=== PATIENT | male | born 1980 | race Caucasian/White ===

== ENCOUNTER 2025-07-28 10:30 | Emergency (ER) | payer MEDICAID ==
[2025-07-28] MEDS: Ketorolac 30 MG/ML SDV IM ONE (12:21)
== END 2025-07-28 16:23 | disposition home or self-care (01) ==
LOC: JP.ED 10:30
DX: M51.26 Other intervertebral disc displacement, lumbar region (principal); Z90.49 Acquired absence of other specified parts of digestive tract; Z88.8 Allergy status to other drugs, medicaments and biological substances; Z79.899 Other long term (current) drug therapy
CPT/HCPCS: 72148; 96372; 99283; J1171; J1885